=== PATIENT | female | born 1945 | race Native Hawaiian/Other Pacific Islander ===

== ENCOUNTER 2019-06-05 09:27 | Outpatient (CLI) | payer OTHER | END 2019-06-05 23:59 | disposition home or self-care (01) | LOC: RAD 09:27 | DX: M85.89 Other specified disorders of bone density and structure, multiple sites (principal) ==

== ENCOUNTER 2021-07-03 09:28 | Outpatient (CLI) | payer OTHER | END 2021-07-03 19:09 | disposition home or self-care (01) | LOC: RAD 09:28 | PROVIDERS: ATTEND Nurse Practitioner Family | DX: E55.9 Vitamin D deficiency, unspecified (principal); M32.8 Other forms of systemic lupus erythematosus; M85.89 Other specified disorders of bone density and structure, multiple sites; Z79.52 Long term (current) use of systemic steroids; Z79.899 Other long term (current) drug therapy ==